=== PATIENT | male | born 1995 | race Caucasian/White ===

== ENCOUNTER 2019-11-27 10:25 | Emergency (ER) | payer OTHER, SELFPAY ==
[2019-11-27 10:25] VITALS: BP 136/79; PULSE 68; RESP 14; TEMP 36.7; O2SAT 99
--- NOTE | 2019-11-27 10:39 | ED_ITS ---
HPI - Skin/Abscess/Foreign Bdy General Chief complaint: Skin/Abscess/Foreign Body Stated complaint: lt ring finger l&I Time Seen by Provider: 11/27/19 10:38 Source: patient Mode of arrival: Ambulatory Limitations: no limitations History of Present Illness HPI narrative: Patient is a 24-year-old male who presents with left hand injury 2 weeks ago. He was on a fishing boat when he cut his middle MCP with a knife. He was started on what sounds like Augmentin but he is not sure 2 weeks ago he has 2 days left. He was then seen for follow-up and was instructed to follow-up 5 days after that. No x-rays were taken he has no pain no erythema he he denies any decreased range of motion. MD complaint: laceration Related Data Home Medications Medication Instructions Recorded Confirmed No Known Home Medications 11/27/19 11/27/19 Allergies Allergy/AdvReac Type Severity Reaction Status Date / Time cephalexin [From Keflex] Allergy Unknown Verified 11/27/19 10:39 Review of Systems Review of Systems Narrative: GENERAL: Denies chills,fever HEENT: Denies throat pain RESPIRATORY: Denies dyspnea, cough, wheezing CARDIOVASCULAR: Denies chest pain, palpitations GASTROINTESTINAL: Denies nausea, vomiting MUSCULOSKELETAL: Denies extremity pain, injury SKIN: See HPI NEUROLOGIC: Denies weakness, dizziness, headache, numbness 8 point review of systems is negative except for those stated above and HPI Patient History Medical History Patient denies significant medical history (Acute) Social History Smoking Status: Current every day smoker Smoking Status: Current every day smoker alcohol intake frequency: 0-2 drinks per day Substance Use Type: does not use Exam Initial Vital Signs Initial Vital Signs: Vital Signs Temperature 98.1 F 11/27/19 10:25 Pulse Rate 68 11/27/19 10:25 Respiratory Rate 14 11/27/19 10:25 Blood Pressure 136/79 11/27/19 10:25 Pulse Oximetry 99 11/27/19 10:25 GENERAL: Well-appearing, well-nourished and in no acute distress. CARDIOVASCULAR: peripheral pulses in tact, cap refill <2 sec RESPIRATORY: No respiratory distress, speaks in full sentences without difficulty EXTREMITIES: Normal range of motion, no clubbing or edema. Neurovascularly intact Left hand full flexion extension abduction adduction at noted in all fingers including left ring finger. Minimal tenderness over left MCP NEUROLOGICAL: Cranial nerves II through XII grossly intact. Normal gait and speech. SKIN: 2 cm flap like open sore over MCP no erythema, clear drainage Course Orders Ordered: ED Orders 11/27/19 10:40 XR hand LT min 3V Stat Discontinued Medications Diphtheria/Tetanus/Acell Pertussis (Adacel) 0.5 ml IM .ONCE ONE Stop: 11/27/19 10:42 Last Admin: 11/27/19 10:49 Dose: 0.5 ml Documented by: JUDYARRINGTO Vital Signs Vital signs: Vital Signs - 8 hr 11/27/19 10:25 Temperature 98.1 F Pulse Rate 68 Respiratory Rate 14 Blood Pressure 136/79 Pulse Oximetry 99 MDM - Skin/Abscess/Foreign Bdy Imaging Data Extremity x-ray #1: Radiologist's Impression: PROCEDURE: XR HAND LT MIN 3V INDICATIONS: knife to left hand above 4th knuckle TECHNIQUE: 3 views of the hand(s) acquired. COMPARISON: None. FINDINGS: Bones: No fractures or dislocations. Carpal bones are normally aligned. No suspicious bony lesions. Soft tissues: No suspicious soft tissue calcifications. Moderate soft tissue swelling on the dorsal aspect of the hand is present. No unexpected radiopaque foreign bodies are identified. IMPRESSION: 1. No displaced left hand fractures. 2. No radiopaque foreign bodies. Dictated by: Himanshu Ritchie M.D. on 11/27/2019 at 10:18 MDM Narrative Medical decision making narrative: Patient does have open laceration he is on an antibiotic which time gas is Augmentin he said that he was told it was stronger than amoxicillin and he said there was a/in it. He has 2 more days left. At this time I recommend finishing the antibiotic I have discussed with him any warning signs of tendinitis which he has no sign or symptom of at this time. X- ray is negative. I do recommend that he keep his hand clean and dry which he is unable to do while working on a fishing boat. Recommend that he not go back until it is closed and scabbed over and healed Discharge Plan Departure Patient Disposition: Home Clinical Impression: Laceration of hand, left Qualifiers: Encounter type: initial encounter Foreign body presence: without foreign body Qualified Code(s): S61.412A - Laceration without foreign body of left hand, initial encounter Discharge Date/Time: 11/27/19 11:24 Instructions: DI for Open Laceration Activity Restrictions/Additional Instructions: *You have been diagnosed with maceration the left *What to do: Keep area clean and dry with soap and water. Recommend antibiotic ointment 1-2 times daily keep covered while active but then remove dressing. Recommend no working in till hand is scabbed over and healed *Continue to take medications as directed Finish antibiotic as previously prescribed *Follow up with your primary care provider in 2-3 days *Return to ER if you should have a redness pus swelling inability to move or bend finger or any new, worsening or concerning symptoms Prescriptions: No Action No Known Home Medications RF: 0 Referrals: Located Within [facility] Resources [Outside] Stand Alone Forms: Work Release Note
[2019-11-27] MEDS: TET,DIPH,PERTUSS(ACELL),VAC/PF 0.5 ML SYRINGE IM (10:49)
== END 2019-11-27 11:24 | disposition home or self-care (01) ==
PROVIDERS: Emergency Provider Emergency Medicine
DX: S61.412A Laceration without foreign body of left hand, initial encounter (principal); W26.0XXA Contact with knife, initial encounter; Z23 Encounter for immunization; Y99.0 Civilian activity done for income or pay
CPT/HCPCS: 73130; 90471; 99283; 90715